=== PATIENT | female | born 2000 | race Caucasian/White ===

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

== ENCOUNTER 2020-04-05 00:51 | Inpatient (IN) | payer MEDICAID ==
[2020-04-05] VITALS (34 sets, daily range): BP systolic 93–148; BP diastolic 41–77; PULSE 54–90; TEMP 97.6–98.2
[~2020-04-05] VITALS: Ht 157.5 cm; Wt 63.6 kg
--- NOTE | 2020-04-05 00:50 | NUR ---
PT ARRIVED TO UNIT AMBULATORY WITH SPOUSE WITH COMPLAINTS OF CONTRACTIONS. ORIENTED TO ROOM, CHANGED INTO GOWN, SVE PERFORMED, VS OBTAINED, EFM X2 APPLIED.
[~2020-04-05 00:51] MED LIST changes: +FLAGYL500 MG PO
[2020-04-05] MEDS ORDERED: PRENATAL PO (01:51)
[2020-04-05 03:40] LABS: BASO % 0.1 % (0.0-2.0); EOS % 0.2 % (0-4.0); GRAN # 8.2 (1.4-6.5); GRAN % 68.3 % (42.2-75.2); HEMATOCRIT 40.1 % (35.0-45.0); HEMOGLOBIN 14.1 g/dl (12.0-15.0); LYMPH # 2.6 (1.2-3.4); LYMPH % 21.5 % (20.0-51.0); MEAN CELL VOLUME 86 fl (80.0-95.0); MEAN CORPUSCULAR HEMOGLOBIN 30 pg (26.0-32.0); MEAN CORPUSCULAR HGB CONC 35 g/dl (33.0-37.0); MEAN PLATELET VOLUME 13.5 fl (7.4-10.4); MONO # 1.2 (0.1-0.6); MONO % 9.5 % (1.7-9.3); PLATELET COUNT 158 K/mm3 (130-400); RED BLOOD COUNT 4.64 M/mm3 (4.10-5.30); REDCELL DISTRIBUTION WIDTH-CV 12.5 % (11.5-14.5)
--- NOTE | 2020-04-05 08:00 | NUR ---
VIKASH /-2. Pitocin started per induction protocol per Dr. Shaw's orders.
--- NOTE | 2020-04-05 09:10 | NUR ---
Dr. Shaw on unit, to pt bedside. SVE per provider /0. AROM at this time, clear fluid noted.
--- NOTE | 2020-04-05 10:55 | NUR ---
0930 - Pt standing at bedside, swaying with contractions. Pt reporting pressure with contractions. SVE /0. Dr. Shaw on unit and notified. 0952 - Pt test push with contractions. Cervix felt with push on anterior side. Reported to Dr. Shaw. 0955 - Dr. Shaw at pt bedside. SVE per provider 0. Pitocin stopped per Dr. Shaw to give pt rest. Pt requesting epidural at this time. Ever Sheffield CRNA notified by Dr. Shaw. 1021 - Ever Sheffield CRNA to pt bedside. Pt repositioned for epidural placement. SS given by Sanchez Sheffield CRNA at 1025. Pt repositioned LL with pillow between knees for comfort. 1031 - SVE by Dr. Shaw . Pt resting comfortably with epidural.
--- NOTE | 2020-04-05 10:56 | NUR ---
Dr. Shaw to pt bedside. SVE per provider . Pitocin restarted at 10mu/ml/hr per physician order.
--- NOTE | 2020-04-05 12:19 | NUR ---
1116 - Dr. Shaw to pt bedside. SVE /0 per provider. Pt repositioned with legs in stirrups, bed and room prepped for delivery. Sakina Guillory RN of nursery notified. Pt begins pushing with contractions with physician and RN at bedside. 1132 - Spontaneously delivery of male , apgars 8/9/9. Infant placed on mother's abdomen, cord clamped and cut. Care of infant transferred to Sakina Guillory RN of nursery. 1134 - Placenta spontaneously delivered by Dr. Shaw. Pitocin started per protocol. Repair of bilateral labial and 1st degree lacerations performed by Dr. Shaw, see phsyician notes. 1145 - Fundus firm and down 1. Small clot expressed. Pericare provided, ice pack placed, pt repositioned for comfort. Warm blanket provided.
[2020-04-06 03:59] VITALS: BP 105/56; PULSE 76; TEMP 97.7
[2020-04-06 06:59] VITALS: BP 100/61; PULSE 66; TEMP 98.3
[2020-04-06] MEDS ORDERED: IBU800 M1 PO (08:40)
[2020-04-06 14:00] VITALS: BP 115/62; PULSE 63; TEMP 97.6
--- NOTE | 2020-04-06 14:35 | NUR ---
Patient discharge instructions reviewed with her and father of baby. Patient verbalizes understanding. Patient and escorted out to private vehicle.
== END 2020-04-06 14:45 | disposition home or self-care (01) | DRG 807 ==
LOC: LDRO 00:51 → LDR 00:51 → LDRO 02:17 → LDR 02:18 → OB 14:16
PROVIDERS: Obstetrics & Gynecology; ADMIT Obstetrics & Gynecology
PROC: 10E0XZZ Delivery of Products of Conception, External Approach (ICD-10-PCS; principal; 2020-04-05)
PROC: 10907ZC Drainage of Amniotic Fluid, Therapeutic from Products of Conception, Via Natural or Artificial Opening (ICD-10-PCS; 2020-04-05)
PROC: 0UQMXZZ Repair Vulva, External Approach (ICD-10-PCS; 2020-04-05)
DX: O62.1 Secondary uterine inertia (principal); Z37.0 Single live birth; O70.0 First degree perineal laceration during delivery; Z3A.39 39 weeks gestation of pregnancy
CPT/HCPCS: J2590; J2795; J7120

== ENCOUNTER 2021-04-25 13:57 | Emergency (ER) | payer MEDICAID ==
[~2021-04-25] VITALS: Ht 157.5 cm; Wt 60.9 kg
[~2021-04-25 13:57] MED LIST changes: +IBU800 M1 PO; +PRENATAL PO
[2021-04-25 14:45] VITALS: TEMP 98.1
[2021-04-25 15:32] LABS: STREP SCREEN NEGATIVE
[2021-04-25 15:33] LABS: COLLECTION METHOD CLEAN CATCH
[2021-04-25 15:37] LABS: HEMATOCRIT 42.7 % (35.0-45.0); HEMOGLOBIN 14.4 g/dl (12.0-15.0); MEAN CELL VOLUME 88 fl (80.0-95.0); MEAN CORPUSCULAR HEMOGLOBIN 30 pg (26.0-32.0); MEAN CORPUSCULAR HGB CONC 34 g/dl (33.0-37.0); MEAN PLATELET VOLUME 11.9 fl (7.4-10.4); PLATELET COUNT 235 K/mm3 (130-400); RED BLOOD COUNT 4.84 M/mm3 (4.10-5.30)
[2021-04-25 15:48] LABS: ALBUMIN 4.5 gm/dL (3.5-5.0); BILIRUBIN,TOTAL 0.9 mg/dL (0.0-1.0); CALCIUM 8.6 mg/dL (8.4-10.2); CREATININE, serum 0.71 (0.52-1.25); POTASSIUM 3.3 mmol/L (3.4-5.0); TOTAL PROTEIN 8.1 gm/dL (6.4-8.2)
[2021-04-25 15:58] LABS: MUCOUS Present /lpf; PH 5 (5-8); SQUAMOUS EPITHELIAL 0-2 /hpf; URINE APPEARANCE Turbid; URINE BACTERIA Occasional /hpf; URINE BILIRUBIN Positive (NEGATIVE); URINE BLOOD 2+ (NEGATIVE); URINE COLOR Amber; URINE GLUCOSE Negative (NEGATIVE); URINE KETONE Negative (NEGATIVE); URINE LEUKOCYTE ESTERASE Negative (NEGATIVE); URINE NITRATE Negative (NEGATIVE); URINE PROTEIN(semi-quant) 2+ (NEGATIVE); URINE RBC None Seen /hpf
[2021-04-25 17:07] LABS: BASOPHIL 1 % (0-2); LYMPHOCYTE 13 % (20.0-51.0); NEUTROPHILS 79 % (42.0-75.2); PLATELET ESTIMATE NORMAL (NORMAL)
[2021-04-25 17:08] LABS: HYPOCHROMIA 1+
[2021-04-25 18:33] VITALS: BP 107/68; PULSE 95
== END 2021-04-25 18:33 | disposition home or self-care (01) ==
LOC: COL.ER 13:57
PROVIDERS: Nurse Practitioner
DX: I88.0 Nonspecific mesenteric lymphadenitis (principal); Z20.822 Contact with and (suspected) exposure to COVID-19
CPT/HCPCS: J7030

== ENCOUNTER 2022-06-24 00:46 | Outpatient (CLI) | payer MEDICAID ==
[~2022-06-24] VITALS: Ht 157.5 cm; Wt 63.2 kg
--- NOTE | 2022-06-24 01:00 | NUR ---
G2L1 at 39 weeks and 2 days arrives to unit with complaint of contractions every 4-5 minutes. Pt reports losing mucus plug around 2300, denies leakage of fluid or vaginal bleeding. Reports positive movement. Denies headaches, blurry vision, or RUQ pain. Clean gown on. Pt oriented to room, bed in low and locked position, call light within reach. US and toco explained and applied. Vitals obtained. Admission assessment started. SVE 3/70/-3, ballotable, vertex position, membranes intact by palpation. Reviewed plan of care with patient and spouse.
[2022-06-24 01:15] VITALS: BP 104/59; PULSE 81; TEMP 97.8
[2022-06-24] MEDS ORDERED: PRENATAL TABLET PO (01:25)
[2022-06-24 01:45] VITALS: BP 116/68; PULSE 89
--- NOTE | 2022-06-24 02:15 | NUR ---
0210 - SVE unchanged over 1 hour. Pt reports contractions have not increased in intensity and is ok with going home and returning when contractions get worse. 0215 - Return precautions explained. Discharge instructions reviewed with patient and spouse, verbalized understanding. Pt seen ambulating off unit with spouse.
[2022-06-25] MEDS ORDERED: IBU600 MG PO (09:14)
[2022-06-25] MEDS ORDERED: TYLENOL 500MG500 MG PO (09:14)
== END 2022-06-24 02:15 | disposition home or self-care (01) ==
LOC: LDRO 00:46
DX: O62.9 Abnormality of forces of labor, unspecified (principal); Z3A.39 39 weeks gestation of pregnancy

== ENCOUNTER 2024-05-29 07:16 | Emergency (ER) | payer SELFPAY ==
[~2024-05-29] VITALS: Ht 157.5 cm; Wt 63.6 kg
[~2024-05-29 07:16] MED LIST changes: +IBU600 MG PO; +PRENATAL TABLET PO; +TYLENOL 500MG500 MG PO
[2024-05-29 07:28] VITALS: BP 116/78; TEMP 98
[2024-05-29] MEDS ORDERED: Ondansetron 4 MG/2 ML VIAL IV ONE (08:00)
[2024-05-29] MEDS ORDERED: NS 1,000 ML IV ONE (08:00)
[2024-05-29 08:06] LABS: COLLECTION METHOD CLEAN CATCH
[2024-05-29 08:11] LABS: BASO % 0.2 % (0.0-2.0); EOS % 0.7 % (0.0-4.0); GRAN # 1.9 K/mm3 (1.4-6.5); GRAN % 30.9 % (42.2-75.2); HEMATOCRIT 44.4 % (37.0-47.0); HEMOGLOBIN 14.9 g/dl (12.5-16.0); LYMPH # 3.5 K/mm3 (1.2-3.4); LYMPH % 58.3 % (20.0-51.0); MEAN CELL VOLUME 89 fl (80.0-100.0); MEAN CORPUSCULAR HEMOGLOBIN 30 pg (27-31); MEAN CORPUSCULAR HGB CONC 34 g/dl (33.0-37.0); MEAN PLATELET VOLUME 11.9 fl (7.4-10.4); MONO # 0.6 K/mm3 (0.1-0.6); MONO % 9.7 % (1.7-9.3); PLATELET COUNT 261 K/mm3 (130-400); REDCELL DISTRIBUTION WIDTH-CV 11.9 % (11.5-14.5)
[2024-05-29] MEDS ORDERED: Ketorolac 30 MG/ML VIAL IV ONE (08:15)
[2024-05-29 08:17] LABS: PH 5.5 (5.0-8.5); URINE APPEARANCE CLEAR (CLEAR/HAZY); URINE BLOOD NEGATIVE (NEGATIVE); URINE COLOR Dark Yellow (YELLOW); URINE GLUCOSE NEGATIVE (NEGATIVE); URINE KETONE TRACE (NEGATIVE); URINE NITRATE NEGATIVE (NEGATIVE); URINE PROTEIN(semi-quant) TRACE (NEGATIVE)
[2024-05-29 08:36] LABS: ALBUMIN 3.9 g/dL (3.5-5.0); BILIRUBIN,TOTAL 0.5 mg/dL (0.2-1.2); C-REACTIVE PROTEIN 0.1 mg/dL (0.00-0.50); CALCIUM 9.4 mg/dL (8.4-10.2); CREATININE, serum 0.77 mg/dL (0.57-1.11); POTASSIUM 3.8 mEq/L (3.5-4.5); TOTAL PROTEIN 7.4 g/dl (6.2-8.1)
[2024-05-29] MEDS ORDERED: Iohexol 300 - 100 ML VIAL IV ONE (08:53)
[2024-05-29] MEDS ORDERED: NS 100 ML IV SCH (08:54)
[2024-05-29] MEDS ORDERED: ZOFRAN ODT4 MG PO (10:04)
[2024-05-29 10:13] VITALS: PULSE 68
== END 2024-05-29 10:14 | disposition home or self-care (01) ==
LOC: COL.ER 07:16
PROVIDERS: Emergency Medicine
DX: R10.31 Right lower quadrant pain (principal); R11.0 Nausea
CPT/HCPCS: J1885; J2405; J7030; Q9967